=== PATIENT | female | born 1995 | race Caucasian/White ===

== ENCOUNTER 2022-01-27 01:20 | Emergency (ER) | payer OTHER ==
[~2022-01-27] VITALS: Ht 160 cm; Wt 88.0 kg
[2022-01-27 01:24] VITALS: BP 109/76
--- NOTE | 2022-01-27 01:28 | NUR ---
TO LOBBY. URINE CUP PROVIDED
[2022-01-27 01:30] VITALS: BP 109/76
--- NOTE | 2022-01-27 02:12 | NUR ---
pt ambulated to bed no 9
--- NOTE | 2022-01-27 02:30 | NUR ---
COVERING PRIMARY RN FOR LUNCH RELIEF. SEE COMPLETE ASSESSMENT
--- NOTE | 2022-01-27 02:52 | NUR ---
ER MD AT BEDSIDE TO EXAMINE PT. WILL AWAIT FOR ORDERS .
[2022-01-27] MEDS ORDERED: KETOROLAC 60 MG/2 ML VIAL IM ONE (02:55)
[2022-01-27] MEDS ORDERED: IBUP-2213 PO (03:13)
[2022-01-27] MEDS ORDERED: ONDA8TAB87 PO (03:13)
[2022-01-27] MEDS ORDERED: ACET-8386 PO (03:13)
--- NOTE | 2022-01-27 03:22 | NUR ---
NO ADVERSE REACTION NOTED. DISCHARGE AND F/U INSTRUCTIONS PROVIDED TO PT AND VERBALIZED UNDERSTANDING. PT REPORTS PAIN TO BE "EASING NOW". PT WALKED OUT OF THE ER WITH STEADY STABLE GAIT. PT STABLE FOR DISCHARGE.
== END 2022-01-27 03:22 | disposition home or self-care (01) ==
LOC: MED 01:20
DX: R10.13 Epigastric pain (principal); R11.2 Nausea with vomiting, unspecified; R30.0 Dysuria
CPT/HCPCS: 81002; 81025; 96372; 99283; J1885